=== PATIENT | female | born 1990 | race American Indian/Alaskan Native ===

== ENCOUNTER 2016-10-02 18:23 | Emergency (ER) | payer OTHER ==
[2016-10-02 19:54] LABS: Basophils % (Auto) 0.6 % (0.0-1.8); Eosinophils % (Auto) 0.9 % (0.0-4.3); Hematocrit 38.9 % (30.3-42.9); Hemoglobin 13.4 gm/dl (10.1-14.3); Mean Corpuscular HGB Conc 35 % (30-34); Mean Corpuscular Hemoglobin 30 pg (28-32); Mean Corpuscular Volume 88 fl (79-97); Platelet Count 231 K/mm3 (140-440); Red Blood Count 4.42 M/mm3 (3.65-5.03); White Blood Count 9.2 K/mm3 (4.5-11.0)
[2016-10-02 21:17] LABS: Bilirubin,Urine NEG (Negative); Blood,Urine SM (Negative); Ketones,Urine NEG (Negative); Leukocyte Esterase,Urine SM (Negative); Mucus,Urine FEW /HPF; Nitrite,Urine NEG (Negative); Protein,Urine <15 mg/dL mg/dL (Negative); Urobilinogen,Urine < 2.0 mg/dL (<2.0)
--- NOTE | 2016-10-02 22:29 | Ultrasound Report ---
FINAL REPORT EXAM: US OB \T\lt; = 14 WEEKS FETUS HISTORY: Preg, abd pn, moderate vaginal bleed with pelvic pain and cramping. Serum beta HCG 13,046. TECHNIQUE: Ultrasound of the pelvis using transabdominal and transvaginal imaging PRIORS: None. FINDINGS: Uterus: Uterus is enlarged in size and normal and homogeneous in echogenicity without focal fibroid formation. The uterus measures 10.0 x 5.5 x 6.5 cm in size. There is a single intrauterine gestation sac noted in the fundal portion of the endometrial canal. Intrauterine gestation: There is a single intrauterine gestation identified however, no evidence for a pole and yolk sac is seen. An average gestational sac diameter of 19 mm corresponds to estimated age 6 weeks 6 days . Ovaries: The left ovary is not visualized. The right ovary appears in size and echogenicity with normal blood flow. The right ovary measures 3.9 x 1.5 x 2.0 cm. Cyst in the right ovary measures 1.3 cm. Other: There is no evidence for solid adnexal mass is seen. There is no free fluid in the cul-de-sac. IMPRESSION: Single intrauterine gestational sac with an approximate age of 6 weeks 6 days. However, no evidence for pole or yolk sac is seen which is abnormal at this gestational age. Findings suggest a blighted ovum. Nonvisualization of the left ovary.
[2016-10-03 00:42] VITALS: BP 114/49
--- NOTE | 2016-10-03 01:19 | Emergency Department Report ---
ED Female HPI - General Chief complaint: Vaginal Bleeding Stated complaint: 11 WKS ,BACK PAIN,BLOOD CLOT Time Seen by Provider: 10/03/16 00:50 Source: patient, RN notes reviewed Mode of arrival: Ambulatory Limitations: No Limitations - History of Present Illness Initial comments: This is a 26-year-old female. She is previously unknown to me. She is 2, para 1. Last menstrual period is July 16. MAGNETIC PROSPECTING OPERATOR: Dr. Nita Burton Has a follow-up appointment with MAGNETIC PROSPECTING OPERATOR this Wednesday. No surgical history,and past medical history The patient presents to the ER complaining of vaginal bleeding. The vaginal bleeding started at 4:00 this afternoon. It is associated with cramping, and lower back pain. No fevers or chills. No chest pain or shortness of breath. No right lower quadrant pain. No irritative or obstructive urinary symptoms. The patient is sexually active with 1 male partner. MD Complaint: vaginal bleeding -: Gradual Location: labia Quality: cramping Consistency: intermittent Improves with: none Worsens with: none Are you Now?: Yes Associated Symptoms: vaginal bleeding. denies: vaginal discharge, nausea/ vomiting, fever/chills, headaches, loss of appetite, dysuria - Related Data Sexually active: Yes Home Medications Medication Instructions Recorded Confirmed Last Taken No Known Home Medications [No 10/03/16 10/03/16 Unknown Reported Home Medications] Allergies Allergy/AdvReac Type Severity Reaction Status Date / Time No Known Allergies Allergy Verified 10/02/16 19:25 ED Review of Systems ROS: Stated complaint: 11 WKS ,BACK PAIN,BLOOD CLOT Other details as noted in HPI Constitutional: denies: fever Eyes: denies: vision change ENT: denies: epistaxis Respiratory: denies: cough Cardiovascular: denies: chest pain Gastrointestinal: denies: vomiting Genitourinary: abnormal menses Musculoskeletal: back pain Skin: denies: rash, lesions Neurological: denies: headache, weakness ED Past Medical Hx - Past Medical History Previous Medical History?: No - Surgical History Past Surgical History?: No - Social History Smoking Status: Never Smoker Substance Use Type: None - Medications Home Medications: Home Medications Medication Instructions Recorded Confirmed Last Taken Type No Known Home Medications [No 10/03/16 10/03/16 Unknown History Reported Home Medications] ED Physical Exam - General Limitations: No Limitations General appearance: alert, in no apparent distress - Head Head exam: Present: atraumatic, normocephalic - Eye Eye exam: Present: normal appearance, EOMI. Absent: nystagmus - ENT ENT exam: Present: normal exam, normal orophraynx, mucous membranes moist, normal external ear exam - Neck Neck exam: Present: normal inspection, full ROM. Absent: tenderness, meningismus - Respiratory Respiratory exam: Present: normal lung sounds bilaterally. Absent: respiratory distress, wheezes, rales, rhonchi, stridor, chest wall tenderness, accessory muscle use, decreased breath sounds, prolonged expiratory - Cardiovascular Cardiovascular Exam: Present: regular rate, normal rhythm, normal heart sounds. Absent: bradycardia, tachycardia, irregular rhythm, systolic murmur, diastolic murmur, rubs, gallop - GI/Abdominal GI/Abdominal exam: Present: soft, normal bowel sounds. Absent: distended, tenderness, guarding, rebound, rigid, pulsatile mass - External exam: Present: normal external exam Speculum exam: Present: normal speculum exam. Absent: vaginal bleeding Bi-manual exam: Present: normal bi-manual exam, other (escorted by RN Shanae Wilcox). Absent: cervical motion tendernes, adnexal tenderness, adnexal mass - Extremities Exam Extremities exam: Present: normal inspection, full ROM, normal capillary refill. Absent: tenderness, pedal edema, joint swelling - Back Exam Back exam: Present: normal inspection, full ROM. Absent: tenderness, CVA tenderness (R), CVA tenderness (L), muscle spasm, paraspinal tenderness, vertebral tenderness - Neurological Exam Neurological exam: Present: alert, oriented X3, normal gait, other (Extraocular movements intact. Tongue midline. No facial droop. Facial sensation intact to light touch in the V1, V2, V3 distribution bilaterally. 5 and 5 strength in 4 extremities.. Sensation is intact to light touch in 4 extremities.). Absent : motor sensory deficit - Psychiatric Psychiatric exam: Present: normal affect, normal mood - Skin Skin exam: Present: warm, dry, intact, normal color. Absent: rash ED Course Vital Signs 10/02/16 10/03/16 19:25 00:41 Temperature 98.3 F Pulse Rate 74 74 Respiratory 16 16 Rate Blood Pressure 113/74 114/49 [Right] O2 Sat by Pulse 100 96 Oximetry ED Medical Decision Making - Lab Data Result diagrams: 10/02/16 19:36 Vital Signs 10/02/16 10/03/16 19:25 00:41 Temperature 98.3 F Pulse Rate 74 74 Respiratory 16 16 Rate Blood Pressure 113/74 114/49 [Right] O2 Sat by Pulse 100 96 Oximetry Lab Results 10/02/16 10/02/16 10/02/16 Range/Units 19:34 19:36 19:36 WBC 9.2 (4.5-11.0) K/mm3 RBC 4.42 (3.65-5.03) M/mm3 Hgb 13.4 (10.1-14.3) gm/dl Hct 38.9 (30.3-42.9) % MCV 88 (79-97) fl MCH 30 (28-32) pg MCHC 35 H (30-34) % RDW 13.0 L (13.2-15.2) % Plt Count 231 (140-440) K/mm3 Lymph % (Auto) 23.8 (13.4-35.0) % Hancock % (Auto) 4.5 (0.0-7.3) % Eos % (Auto) 0.9 (0.0-4.3) % Baso % (Auto) 0.6 (0.0-1.8) % Lymph # 2.2 (1.2-5.4) K/mm3 Hancock # 0.4 (0.0-0.8) K/mm3 Eos # 0.1 (0.0-0.4) K/mm3 Baso # 0.1 (0.0-0.1) K/mm3 Seg Neutrophils % 70.2 H (40.0-70.0) % Seg Neutrophils # 6.5 (1.8-7.7) K/mm3 HCG, Quant 70769 H (0-4) mIU/mL Urine Color (Yellow) Urine Turbidity (Clear) Urine pH (5.0-7.0) Ur Specific Clever (1.003-1.030) Urine Protein (Negative) mg/dL Urine Glucose (UA) (Negative) mg/dL Urine Ketones (Negative) mg/dL Urine Blood (Negative) Urine Nitrite (Negative) Urine Bilirubin (Negative) Urine Urobilinogen (<2.0) mg/dL Ur Leukocyte Esterase (Negative) Urine WBC (Auto) (0.0-6.0) /HPF Urine RBC (Auto) (0.0-6.0) /HPF U Epithel Cells (Auto) (0-13.0) /HPF Urine Mucus /HPF Blood Type O POSITIVE Antibody Screen TNR GLADYS Antibody Screen Negative 10/02/16 Range/Units Unknown WBC (4.5-11.0) K/mm3 RBC (3.65-5.03) M/mm3 Hgb (10.1-14.3) gm/dl Hct (30.3-42.9) % MCV (79-97) fl MCH (28-32) pg MCHC (30-34) % RDW (13.2-15.2) % Plt Count (140-440) K/mm3 Lymph % (Auto) (13.4-35.0) % Hancock % (Auto) (0.0-7.3) % Eos % (Auto) (0.0-4.3) % Baso % (Auto) (0.0-1.8) % Lymph # (1.2-5.4) K/mm3 Hancock # (0.0-0.8) K/mm3 Eos # (0.0-0.4) K/mm3 Baso # (0.0-0.1) K/mm3 Seg Neutrophils % (40.0-70.0) % Seg Neutrophils # (1.8-7.7) K/mm3 HCG, Quant (0-4) mIU/mL Urine Color Yellow (Yellow) Urine Turbidity Cloudy (Clear) Urine pH 8.0 H (5.0-7.0) Ur Specific Clever 1.018 (1.003-1.030) Urine Protein <15 mg/dl (Negative) mg/dL Urine Glucose (UA) Neg (Negative) mg/dL Urine Ketones Neg (Negative) mg/dL Urine Blood Sm (Negative) Urine Nitrite Neg (Negative) Urine Bilirubin Neg (Negative) Urine Urobilinogen < 2.0 (<2.0) mg/dL Ur Leukocyte Esterase Sm (Negative) Urine WBC (Auto) 1.0 (0.0-6.0) /HPF Urine RBC (Auto) 8.0 (0.0-6.0) /HPF U Epithel Cells (Auto) 12.0 (0-13.0) /HPF Urine Mucus Few /HPF Blood Type Antibody Screen GLADYS Antibody Screen - Radiology Data Radiology results: report reviewed, image reviewed Transvaginal ultrasound: Single intrauterine gestational sac noted in the fundus. No evidence for pole or yolk sac is noted. Left ovary not visualized. Right ovary visualized, normal blood flow is noted. No evidence for solid adnexal mass. No free fluid in the cul-de-sac. Intrauterine gestational sac at 6 weeks and 6 days. No evidence for pole or yolk sac is seen, which is abnormal at this gestational age. Findings suggest blighted ovum. - Medical Decision Making Differential diagnosis: Miscarriage, threatened miscarriage, , ectopic , urinary tract infection Assessment and plan: 26-year-old female who is Rh+ with vaginal bleeding, hemodynamically stable, no abdominal tenderness, rebound or guarding. Pelvic ultrasound suggests intrauterine gestational sac without pole or yolk sac, suggestive of blighted ovum. The patient has a follow-up appointment this Wednesday with her service liaison representative. She will be managed expectantly. A urinalysis does not suggest urinary tract infection. The patient is given a copy of her ultrasound report. Return precautions are reviewed. Critical care attestation.: If time is entered above; I have spent that time in minutes in the direct care of this critically ill patient, excluding procedure time. ED Disposition Clinical Impression: Miscarriage Disposition: DISCHARGED TO HOME OR SELFCARE Is pt being admited?: No Does the pt Need Aspirin: No Condition: Stable Instructions: Spontaneous Miscarriage (ED) Additional Instructions: Rest and avoid heavy lifting. Avoid strenuous physical activity. Follow-up on Wednesday with her outpatient service liaison representative. Ultrasound, history, physical exam suggested miscarriage. Ultrasound does not demonstrate pole or yolk sac, suggestive of blighted ovum. Most likely, this is a failed . do not engage in sexual activity until cleared by her MAGNETIC PROSPECTING OPERATOR doctor. Continue current outpatient medications. Return to the ER right away with new pain, worsened pain, migration of pain, bleeding more than 2 pads soaked for hour, dizziness, lightheadedness, chest pain, shortness of breath, intractable nausea or vomiting, fevers, chills, change in mental status. Referrals: PRIMARY CAREMD [Primary Care Provider] - 3-5 Days YENNI DUMONT MD [Staff Physician] - 3-5 Days
== END 2016-10-03 01:58 | disposition home or self-care (01) ==
LOC: ED 18:23
DX: O03.9 Complete or unspecified spontaneous abortion without complication (principal); Z3A.11 11 weeks gestation of pregnancy
CPT/HCPCS: 36415; 76801; 76817; 81001; 84702; 85025; 86850; 86900; 86901